=== PATIENT | female | born 1985 | race Caucasian/White ===

== ENCOUNTER → 2021-07-12 | Outpatient (CLI) | payer OTHER | LOC: LAB 14:38 | DX: Z01.89 Encounter for other specified special examinations (principal) ==

== ENCOUNTER 2025-03-02 14:54 | Emergency (ER) | payer SELFPAY ==
[~2025-03-02] VITALS: Ht 149.9 cm; Wt 51.8 kg
[2025-03-02] MEDS ORDERED: MIXED AMPHETAMI15 M1 PO (15:08)
[2025-03-02] MEDS ORDERED: DEXTROAMPH SACC10 M1 PO (15:08)
[2025-03-02] MEDS ORDERED: SERTRALINE HYD100 MG PO (15:08)
[2025-03-02] MEDS ORDERED: CYCLOBENZAPRINE10 M1 PO (15:08)
[2025-03-02] MEDS ORDERED: TRAMADOL 50 MG TAB PO (15:09)
[2025-03-02 15:41] LABS: BASO # 0.03 K/mm3 (0.02-0.10); EOS # 0.07 K/mm3 (0.04-0.40); EOS % 0.4 % (1.0-5.0); HEMATOCRIT 33.2 % (37.0-47.0); HEMOGLOBIN 10.9 g/dL (12.5-16.0); LYMPH# 1.57 K/mm3 (1.50-4.00); MEAN CELL VOLUME 89 fl (78-100); MEAN CORPUSCULAR HEMOGLOBIN 29 pg (27-31); MEAN CORPUSCULAR HGB CONC 33 g/dL (33-37); MEAN PLATELET VOLUME 8.6 fl (7.4-10.4); MONO # 0.89 K/mm3 (0.20-0.80); PLATELET COUNT 598 K/mm3 (130-400); RED BLOOD COUNT 3.72 M/mm3 (4.10-5.30); RED CELL DISTRIBUTION WIDTH 14.5 % (11.5-14.5)
[2025-03-02 15:49] LABS: ALBUMIN 3.4 g/dL (3.5-5.0)
[2025-03-02 15:50] LABS: CALCIUM 9.8 mg/dL (8.3-10.5)
[2025-03-02 15:51] LABS: TOTAL PROTEIN 8.1 g/dL (6.4-8.3)
[2025-03-02 15:53] LABS: TOTAL BILIRUBIN 0.4 mg/dL (0.2-1.2)
[2025-03-02 15:58] LABS: MAGNESIUM 1.45 mg/dL (1.60-2.60)
[2025-03-02] MEDS ORDERED: Dextrose/Magnesium Sulfate 100 ML IV ONE ×2 (16:15)
[2025-03-02] MEDS ORDERED: Potassium Chloride 100 ML IV ONE ×2 (16:15→19:00)
[2025-03-02] MEDS ORDERED: Ketorolac 30 MG/ML VIAL IV ONE (16:30)
[2025-03-02] MEDS ORDERED: Potassium Bicarbonate/Citrate 20 MEQ Effervescent TAB PO ONE (16:45)
[2025-03-02 16:48] LABS: URINE APPEARANCE CLOUDY (CLEAR); URINE COLOR YELLOW (YELLOW)
[2025-03-02 16:49] LABS: PH-URINE 6.5 (5.0 - 8.0); URINE BILIRUBIN NEGATIVE (NEGATIVE); URINE BLOOD NEGATIVE (NEGATIVE); URINE GLUCOSE NEGATIVE (NEGATIVE); URINE KETONE TRACE (NEGATIVE); URINE LEUKOCYTE ESTERASE TRACE (NEGATIVE); URINE NITRATE POSITIVE (NEGATIVE); URINE PROTEIN(semi-quant) 1+ (NEGATIVE)
[2025-03-02] MEDS ORDERED: Piperacillin/Tazobactam Sodium 4.5 GM in Water For Injection,Sterile 20 ML IV ONE (17:00)
[2025-03-02] MEDS ORDERED: Vancomycin 1 G in NS 250 ML IV ONE (17:00)
[2025-03-02] MEDS ORDERED: Iohexol 300 - 100 ML VIAL IV ONE (17:01)
[2025-03-02] MEDS ORDERED: NS 100 ML IV SCH (17:02)
[2025-03-02] MEDS ORDERED: NS 1,000 ML IV SCH (17:30)
[2025-03-02] MEDS ORDERED: NS 500 ML IV SCH (17:30)
[2025-03-02] MEDS ORDERED: dexAMETHasone 4 MG/ML VIAL IV ONE (18:30)
[2025-03-02] MEDS ORDERED: Nicotine 14 MG DAILY PATCH TD ONE (19:00)
[2025-03-02 19:20] LABS: URINE APPEARANCE SLIGHTLY CLOUDY (CLEAR); URINE BILIRUBIN NEGATIVE (NEGATIVE); URINE BLOOD TRACE-INTACT (NEGATIVE); URINE COLOR YELLOW (YELLOW); URINE GLUCOSE NEGATIVE (NEGATIVE); URINE KETONE NEGATIVE (NEGATIVE); URINE LEUKOCYTE ESTERASE NEGATIVE (NEGATIVE); URINE NITRATE POSITIVE (NEGATIVE); URINE PROTEIN(semi-quant) TRACE (NEGATIVE)
[2025-03-02 21:36] VITALS: BP 123/72
== END 2025-03-02 21:30 | disposition short-term general hospital (02) ==
LOC: ED 14:54
PROVIDERS: Family Medicine
DX: M46.42 Discitis, unspecified, cervical region (principal); J39.1 Other abscess of pharynx; R00.0 Tachycardia, unspecified; M62.830 Muscle spasm of back; E86.0 Dehydration; E83.42 Hypomagnesemia; E87.6 Hypokalemia; R30.0 Dysuria; R94.6 Abnormal results of thyroid function studies; F17.200 Nicotine dependence, unspecified, uncomplicated
CPT/HCPCS: J1100; J1885; J2543; J3370; J3475; J3480; J7030; J7040; J7050; J7120; Q9967